=== PATIENT | male | born 1945 | race Caucasian/White ===

== ENCOUNTER 2023-02-28 19:50 | Inpatient (IN) ==
[2023-02-28 21:25] LABS: BASOPHILS # (AUTO) 0.1 X10^3/uL (0.0-0.1); BASOPHILS % (AUTO) 0.4 % (0.2-1.0); EOSINOPHILS % (AUTO) 0.1 % (0.9-2.9); HEMATOCRIT 28.4 % (42.0-54.0); HEMOGLOBIN 8.9 g/dL (13.5-18.0); LYMPHOCYTES % (AUTO) 13.6 % (21.0-51.0); MEAN CORPUSCULAR HEMOGLOBIN 25.8 pg (27.0-34.0); MEAN CORPUSCULAR HGB CONC 31.4 g/dL (33.0-35.0); MEAN CORPUSCULAR VOLUME 82.1 fL (80.0-100.0); MEAN PLATELET VOLUME 8.6 fL (7.4-11.0); MONOCYTES # (AUTO) 1.5 x10^3/uL (0.3-0.8); MONOCYTES % (AUTO) 10.4 % (0.0-13.0); NEUTROPHILS # (AUTO) 11.1 x10^3/uL (2.2-4.8); NEUTROPHILS % (AUTO) 75.5 % (42.0-75.0); PLATELET COUNT 171 X10^3/uL (150.0-450.0); RED BLOOD COUNT 3.46 X10^6/uL (4.7-6.0); RED CELL DISTRIBUTION WIDTH 15.7 % (11.6-16.5); WHITE BLOOD COUNT 14.7 X10^3/uL (3.6-10.0)
[2023-02-28 21:45] LABS: ALANINE AMINOTRANSFERASE < 6 Units/L (12-78); ALBUMIN 2.4 g/dL (3.4-5.0); ALKALINE PHOSPHATASE 71 Units/L (46-116); ASPARTATE AMINO TRANSFERASE 9 Units/L (15-37); BLOOD UREA NITROGEN 41 mg/dL (7-18); CALCIUM 7.7 mg/dL (8.5-10.1); CARBON DIOXIDE 29.5 mmol/L (21-32); CHLORIDE 97 mmol/L (98-107); COR NA(FOR HYPERGLY) 133 mmol/L (136-145); GLUCOSE 118 mg/dL (65-99); SODIUM 133 mmol/L (136-145); TOTAL PROTEIN 6.9 g/dL (6.4-8.2); eGFR NON BLACK RACES 16 (>60)
--- NOTE | 2023-02-28 21:56 | DR.DIZZY ---
HPI Time seen Time Seen by Provider: 02/28/23 21:07 PCP Primary Care Physician: Dr. Mihir Phoenix Complaint Chief Complaint:: Pt states he was seen in the ER here yesterday after feeling very weak and having right sided pain. Pt's states his symptoms have progressively became worse. At 1830, at home the pt's blood pressure was 95/52 and O2 level was 83%. Pt denies feeling short of breath, pt states he just feels very tired. They attempted to notify their PCP with no luck of being seen. Self Treatment fo Chief Complaint: Pt stated he took his high blood pressure medication at home at 1900 COVID-19 Coronavirus risk:travel/contact w/high risk person: No Has patient experienced Coronavirus symptoms: No Nurses Notes Reviewed Nurses Notes Review: Yes Source History Provided: Patient, Family Member and Significant Other Mode of Arrival Mode of Arrival: Wheelchair Timing Onset of Chief Complaint: 02/27/23 Came on: Gradually Duration Duration: Intermittent Location of Weakness Weakness Location: Generalized Context Stroke Symptoms: None Severity Severity: Abnormal activity level PMH PMH Past Medical History: Yes Past Medical History: Dyslipidemia, GERD and Hypertension Past Medical History Comment: Parkinson, Fluid retention, Kidney Disease, BPH, Neuropathy, Chronic neck & back pain Past Surgical History: Yes Surgical History: Angioplasty/Stents, Ortho Surgery and Other Past Surgical History Comment: back sx x4, L knee replacement, R knee replacement, pain pump insertion, L & R neck ablation, lower back ablation, heart cath/stent x3 Family History History of Family Medical Conditions: Yes Family Medical History: Hypertension Social History Does patient currently use any type of tobacco product: No Have you used tobacco products in the last 12 months: No Type of Tobacco Use: None Does any household member use tobacco: No Alcohol Use: None Do you use any recreational Drugs:: No Lives With: Spouse Lives Where: Home Travel Risk Coronavirus risk:travel/contact w/high risk person: No Has patient experienced Coronavirus symptoms: No Infectious screening Have you traveled outside the country in the last 6 months?: No Isolation: Standard ROS Review of Systems Respiratoy: See HPI and Short of Breath PE Vital Signs Vitals: Vital Signs Temperature 98.1 F Pulse Rate 68 Respiratory Rate 22 Blood Pressure 78/42 O2 Sat by Pulse Oximetry 92 General Limitations: No Limitations General Appearance: Alert and In No Apparent Distress Head Head Exam: Normal Inspection Eyes Eye exam: Normal Appearance ENT ENT Exam: Normal Exam Neck Neck Exam: Normal Inspection Chest Chest Inspection: Normal Inspection Respiratory Respiratory Exam: Right: Rhonchi Cardiovascular Cardiovascular Exam: Regular Rate Abdominal Exam Abdominal Exam: Normal Inspection Rectal Rectal Exam: Deferred Extremeties Extremities Exam: Edema Back Back Exam: Normal Inspection Neurologic Neurological Exam: Alert, Oriented X3, CN II-XII Intact, Normal Gait and Reflexes Normal Patient Oriented To: Person, Place and Time COURSE Treatment Treatment: X-rays, labs, IV antibiotics Reevaluation 1st: Improved ROR Labs Reviewed Laboratory Results Reviewed?: Yes 02/28/23 21:14 02/28/23 21:14 Laboratory: WBC 14.7 X10^3/uL (3.6-10.0) H 02/28/23 21:14 RBC 3.46 X10^6/uL (4.7-6.0) L 02/28/23 21:14 Hgb 8.9 g/dL (13.5-18.0) L 02/28/23 21:14 Hct 28.4 % (42.0-54.0) L 02/28/23 21:14 MCV 82.1 fL (80.0-100.0) 02/28/23 21:14 MCH 25.8 pg (27.0-34.0) L 02/28/23 21:14 MCHC 31.4 g/dL (33.0-35.0) L 02/28/23 21:14 RDW 15.7 % (11.6-16.5) 02/28/23 21:14 Plt Count 171 X10^3/uL (150.0-450.0) 02/28/23 21:14 MPV 8.6 fL (7.4-11.0) 02/28/23 21:14 Neut % (Auto) 75.5 % (42.0-75.0) H 02/28/23 21:14 Lymph % (Auto) 13.6 % (21.0-51.0) L 02/28/23 21:14 [place] % (Auto) 10.4 % (0.0-13.0) 02/28/23 21:14 Eos % (Auto) 0.1 % (0.9-2.9) L 02/28/23 21:14 Baso % (Auto) 0.4 % (0.2-1.0) 02/28/23 21:14 Neut # (Auto) 11.1 x10^3/uL (2.2-4.8) H 02/28/23 21:14 Lymph # (Auto) 2.0 X10^3/uL (1.3-2.9) 02/28/23 21:14 [place] # (Auto) 1.5 x10^3/uL (0.3-0.8) H 02/28/23 21:14 Eos # (Auto) 0.0 x10^3/uL (0.0-0.2) 02/28/23 21:14 Baso # (Auto) 0.1 X10^3/uL (0.0-0.1) 02/28/23 21:14 Absolute Nucleated RBC 0.0 /100WBC 02/28/23 21:14 Sodium 133 mmol/L (136-145) L 02/28/23 21:14 Corrected Sodium 133 mmol/L (136-145) L 02/28/23 21:14 Potassium 4.0 mmol/L (3.5-5.1) 02/28/23 21:14 Chloride 97 mmol/L (98-107) L 02/28/23 21:14 Carbon Dioxide 29.5 mmol/L (21-32) 02/28/23 21:14 BUN 41 mg/dL (7-18) H 02/28/23 21:14 Creatinine 4.00 mg/dL (0.70-1.30) H 02/28/23 21:14 Est GFR (MDRD) Af Amer 19 (>60) L 02/28/23 21:14 Est GFR (MDRD) Non-Af 16 (>60) L 02/28/23 21:14 Glucose 118 mg/dL (65-99) H 02/28/23 21:14 Calcium 7.7 mg/dL (8.5-10.1) L 02/28/23 21:14 Corrected Calcium 9.0 mg/dL (8.5-10.1) 02/28/23 21:14 Total Bilirubin 0.70 mg/dL (0.2-1.0) 02/28/23 21:14 AST 9 Units/L (15-37) L 02/28/23 21:14 ALT < 6 Units/L (12-78) L 02/28/23 21:14 Alkaline Phosphatase 71 Units/L (46-116) 02/28/23 21:14 B-Natriuretic Peptide 176 pg/mL (0-79) H 02/28/23 21:14 Total Protein 6.9 g/dL (6.4-8.2) 02/28/23 21:14 Albumin 2.4 g/dL (3.4-5.0) L 02/28/23 21:14 Globulin 4.5 g/dL (2.5-4.5) 02/28/23 21:14 Albumin/Globulin Ratio 0.5 Ratio (1.1-2.1) L 02/28/23 21:14 XRAY XRAY Interpreted by: Radiologist Opioid Opioid Risk Tool Age (Augustin box if 16-45): No History of Preadolescent Sexual Abuse: No Total: 0 Total Score Risk Category: Low Risk Copyright: Leroy MEZA predicting aberrant behaviors Discharge Plan Diagnosis Discharge Problem: Acute on chronic kidney failure, RLL pneumonia Discharge Plan Patient Disposition: 09 ADMITTED INPATIENT Condition: Stable Prescriptions: No Action carvedilol 25 mg tablet 25 mg PO BID Patient Comments: TAKE ONE (1) TABLET BY MOUTH WITH FOOD TWO (2) TIMES A DAY ropinirole 1 mg tablet 1 mg PO TID tizanidine 4 mg tablet 4 mg PO BID PRN Patient Comments: TAKE ONE (1) TABLET BY MOUTH TWO (2) TIMES A DAY NEEDED carbidopa-levodopa 50-200 mg tablet extended release 1 tab PO TID clopidogrel 75 mg tablet 75 mg PO DAILY potassium chloride 20 mEq tablet,ER particles/crystals 20 meq PO DAILY tamsulosin 0.4 mg capsule 0.4 mg PO DAILY furosemide 80 mg tablet 160 mg PO DAILY Patient Comments: TAKE ONE (1) TABLET BY MOUTH ONCE DAILY pantoprazole 40 mg tablet,delayed release (DR/EC) 40 mg PO DAILY simvastatin 20 mg tablet 20 mg PO HS Patient Comments: TAKE ONE (1) TABLET BY MOUTH EVERY NIGHT AT BEDTIME FOR CHOLESTEROL gabapentin 100 mg capsule 100 mg PO BID Patient Comments: TAKE ONE (1) CAPSULE BY MOUTH TWO (2) TIMES A DAY Eliquis 5 mg tablet 5 mg PO BID hydromorphone 2 mg tablet 2 mg PO Q6HR PRN (Reason: Pain) bumetanide 2 mg tablet 2 mg PO QDAY losartan 50 mg Tablet 50 mg PO DAILY glycopyrrolate 1 mg tablet 1 mg PO BID tramadol 50 mg tablet 50 mg PO Q4H PRN cefdinir 300 mg capsule 300 mg PO BID 10 Days Qty: 20 0RF Health Concerns: Post Hospitalization: new medications and changes needed to prevent readmission or further decline. Pt educated and given instructions on all concerns. Plan of Treatment: Continue with present treatment and follow up plan. Pt is to keep follow up appointment as instructed and take medications as ordered. Follow ups/Referrals Follow ups/Referrals: Mihir Phoenix [Primary Care Provider] - 3 days
[2023-02-28] MEDS ORDERED: LEVAQUIN PREMIX IV 750 MG 750 MG/150 ML BAG IV SCH (22:00)
--- NOTE | 2023-02-28 22:36 | EKG ---
Test Reason : SOB Blood Pressure : */* mmHG Vent. Rate : 54 BPM Atrial Rate : 54 BPM P-R Int : 158 ms QRS Dur : 86 ms QT Int : 426 ms P-R-T Axes : 15 29 29 degrees QTc Int : 403 ms Sinus bradycardia Otherwise normal ECG When compared with ECG of 02-SEP-2022 17:15, Sinus rhythm has replaced Atrial fibrillation Vent. rate has decreased BY 77 BPM T wave inversion no longer evident in Lateral leads Confirmed by Valdo Laguna MD ([id number]) on 03/01/2023 1:10:19 PM Referred By: Confirmed By: Valdo Laguna MD
[2023-02-28] MEDS ORDERED: LEVAQUIN PREMIX IV 500 MG 500 MG/100 ML BAG IV ONE (23:35)
[2023-02-28] MEDS ORDERED: NS 1,000 ML IV 1,000 ML ONE (23:37)
[2023-02-28] MEDS: NS 1,000 ML IV 1,000 ML IV SCH (23:40)
[2023-03-01] MEDS ORDERED: LEVAQUIN PREMIX IV 500 MG 500 MG/100 ML BAG IV SCH (01:00)
[2023-03-01] MEDS ORDERED: NS 1,000 ML IV 1,000 ML ONE (01:31)
--- NOTE | 2023-03-01 02:06 | RAD ---
HISTORYSeen in the ER here yesterday after feeling very weak and having rt sided pain. Symptoms have progressively became worse. At home the pt's blood pressure was 95/52 and O2 level was 83%. Relevant Clinical InformationSTUDJAMES REESE/LAT [id number]/24/2023 isFINDINGSThe trachea is midline. The cardiac silhouette is unremarkable. Increased opacification in the right lung base due to subsegmental atelectasis and/or infiltrate with small pleural effusion, unchanged. The left lung is clear. The bony thorax is unremarkable.IMPRESSIONRight basilar infiltrate, atelectasis and/or small effusion..Electronically signed by: Chandan Martinez (Mar 01, 2023 02:04:54)
[2023-03-01] MEDS: NORCO 5/325 MG TAB PO PRN ×3 (02:52→15:20)
[2023-03-01 04:28] LABS: BASOPHILS % (AUTO) 0.3 % (0.2-1.0); EOSINOPHILS % (AUTO) 0.2 % (0.9-2.9); HEMATOCRIT 26.1 % (42.0-54.0); HEMOGLOBIN 8.1 g/dL (13.5-18.0); LYMPHOCYTES # (AUTO) 1.5 X10^3/uL (1.3-2.9); MEAN CORPUSCULAR HEMOGLOBIN 25.6 pg (27.0-34.0); MEAN CORPUSCULAR HGB CONC 31.1 g/dL (33.0-35.0); MEAN CORPUSCULAR VOLUME 82.1 fL (80.0-100.0); MONOCYTES # (AUTO) 1.1 x10^3/uL (0.3-0.8); MONOCYTES % (AUTO) 9.3 % (0.0-13.0); NEUTROPHILS # (AUTO) 9.6 x10^3/uL (2.2-4.8); NEUTROPHILS % (AUTO) 78.2 % (42.0-75.0); PLATELET COUNT 153 X10^3/uL (150.0-450.0); RED BLOOD COUNT 3.18 X10^6/uL (4.7-6.0); RED CELL DISTRIBUTION WIDTH 16.1 % (11.6-16.5); WHITE BLOOD COUNT 12.3 X10^3/uL (3.6-10.0)
[2023-03-01 04:43] LABS: ALKALINE PHOSPHATASE 67 Units/L (46-116); ASPARTATE AMINO TRANSFERASE 10 Units/L (15-37); BLOOD UREA NITROGEN 43 mg/dL (7-18); CALCIUM 7.4 mg/dL (8.5-10.1); CARBON DIOXIDE 28.1 mmol/L (21-32); CHLORIDE 97 mmol/L (98-107); COR NA(FOR HYPERGLY) 134 mmol/L (136-145); CREATININE 3.96 mg/dL (0.70-1.30); GLUCOSE 126 mg/dL (65-99); POTASSIUM 4.1 mmol/L (3.5-5.1); SODIUM 133 mmol/L (136-145); TOTAL PROTEIN 6.2 g/dL (6.4-8.2); eGFR NON BLACK RACES 16 (>60)
[2023-03-01 04:45] LABS: ALANINE AMINOTRANSFERASE < 6 Units/L (12-78)
[2023-03-01] MEDS: DUONEB 0.5 MG/3 MG (3 mL) NEB SCH ×4 (09:14→21:03)
[2023-03-01] MEDS: PULMICORT NEB TX 0.5 MG NEB SCH ×2 (09:14→21:03)
[2023-03-01] MEDS: PROTONIX INJ 40 MG VIAL IVP SCH ×2 (09:27→20:44)
[2023-03-01] MEDS: COLACE CAP 100 MG PO SCH ×2 (10:15→21:27)
[2023-03-01] MEDS: NS 1,000 ML IV 1,000 ML IV SCH ×2 (10:15→18:25)
[2023-03-01] MEDS: MILK OF MAGNESIA PO SCH ×2 (10:15→21:28)
[2023-03-01 19:30] VITALS: BMI 37.2
[2023-03-01] MEDS: DILAUDID INJ IVP PRN ×2 (19:59→23:41)
[2023-03-01] MEDS ORDERED: RESTORIL CAP 15 MG PO SCH (21:00)
--- NOTE | 2023-03-01 21:21 | DR.H&P ---
H&P History & Physical for Day of: H&P Date: 03/01/23 Chief Complaint Chief Complaint: Weakness with right-sided chest pain and right-sided back pain Allergies Allergies Allergy/AdvReac Type Severity Reaction Status Date / Time No Known Drug Allergies Allergy Verified 10/09/22 18:52 History of Present Illness History of Present Illness: This is a 77-year-old white male who presented to the emergency department on Sunday, 27 February 2023 with increasing weakness and right-sided chest pain and right-sided back pain. He was seen in the emergency department about a month ago and diagnosed with right lower lobe pneumonia. His primary care physician is Dr. Palacio in [place], [place]. His primary care physician started him on doxycycline on the day before but the patient got worse so decided to come to the [facility] emergency department. X-ray shows that he has a right-sided basilar infiltrate along with a right- sided pleural effusion. This was also seen 1 day prior when he came [facility] and emergency department for similar symptoms. Because of his ongoing problems with increasing weakness and worsening hemoglobin along with the right basilar pneumonia we decided to go ahead and admit Him for inpatient treatment of pneumonia. He also has a worsening hemoglobin over the last 3 days so we will consult general surgery, Dr. Mireles to do EGD on him. His hemoglobin today is 8.1 which is down from 10.12 days ago. He has chronic back pain which he takes oral Dilaudid for and he tells me this morning that he is unable to sleep at night because of the bed hurting his back. I spoke with general surgeon, Dr. Mireles this afternoon when he plans on doing EGD tomorrow morning to rule out the possibility of an upper GI bleed causing his anemia. Patient was also found to be profoundly dehydrated and we are rehydrating him with slow IV fluid. He is slightly improved today since yesterday regarding his creatinine level. Past Medical History Past Medical History: Anemia, CHF, Dyslipidemia, GERD and Hypertension Additional Medical History: Restless leg syndrome, chronic back pain, hypercholesteremia, BPH, hypertension Past Surgical History Surgical History: Angioplasty/Stents and Joint Replacement Additional Surgical History: Left knee arthroplasty, right knee arthroplasty Family History Family Medical History: Diabetes Mellitus, Cancer, MD and Hypertension Social History Does patient currently use any type of tobacco product: No Have you used tobacco products in the last 12 months: No Type of Tobacco Use: None How many years tobacco product used: 12 Does any household member use tobacco: No Alcohol Use: None Drug Use: None Medications Home Medications: Home Medications Medication Instructions Recorded Confirmed Type apixaban 5 mg tablet (Eliquis) 5 mg PO BID 08/25/21 02/28/23 History carbidopa ER 50 mg-levodopa 200 mg 1 tab PO TID 08/25/21 02/28/23 History tablet,extended release carvedilol 25 mg tablet 25 mg PO BID 08/25/21 02/28/23 History clopidogrel 75 mg tablet 75 mg PO DAILY 08/25/21 02/28/23 History furosemide 80 mg tablet 160 mg PO DAILY 08/25/21 02/28/23 History gabapentin 100 mg capsule 100 mg PO BID 08/25/21 02/28/23 History pantoprazole 40 mg tablet,delayed 40 mg PO DAILY 08/25/21 02/28/23 History release potassium chloride 20 mEq 20 meq PO DAILY 08/25/21 02/28/23 History tablet,extended release(part/cryst) ropinirole 1 mg tablet 1 mg PO TID 08/25/21 02/28/23 History simvastatin 20 mg tablet 20 mg PO HS 08/25/21 02/28/23 History tamsulosin 0.4 mg capsule 0.4 mg PO DAILY 08/25/21 02/28/23 History tizanidine 4 mg tablet 4 mg PO BID PRN 08/25/21 02/28/23 History hydromorphone 2 mg tablet 2 mg PO Q6HR PRN Pain 10/05/22 02/28/23 History bumetanide 2 mg tablet 2 mg PO QDAY 01/24/23 02/28/23 History glycopyrrolate 1 mg tablet 1 mg PO BID 02/27/23 02/28/23 History losartan 50 mg tablet 50 mg PO DAILY 02/27/23 02/28/23 History tramadol 50 mg tablet 50 mg PO Q4H PRN 02/27/23 02/28/23 History Labs 03/01/23 04:06 03/01/23 04:06 Labs: Laboratory WBC 12.3 X10^3/uL (3.6-10.0) H 03/01/23 04:06 RBC 3.18 X10^6/uL (4.7-6.0) L 03/01/23 04:06 Hgb 8.1 g/dL (13.5-18.0) L 03/01/23 04:06 Hct 26.1 % (42.0-54.0) L 03/01/23 04:06 MCV 82.1 fL (80.0-100.0) 03/01/23 04:06 MCH 25.6 pg (27.0-34.0) L 03/01/23 04:06 MCHC 31.1 g/dL (33.0-35.0) L 03/01/23 04:06 RDW 16.1 % (11.6-16.5) 03/01/23 04:06 Plt Count 153 X10^3/uL (150.0-450.0) 03/01/23 04:06 MPV 9.0 fL (7.4-11.0) 03/01/23 04:06 Neut % (Auto) 78.2 % (42.0-75.0) H 03/01/23 04:06 Lymph % (Auto) 12.0 % (21.0-51.0) L 03/01/23 04:06 [place] % (Auto) 9.3 % (0.0-13.0) 03/01/23 04:06 Eos % (Auto) 0.2 % (0.9-2.9) L 03/01/23 04:06 Baso % (Auto) 0.3 % (0.2-1.0) 03/01/23 04:06 Neut # (Auto) 9.6 x10^3/uL (2.2-4.8) H 03/01/23 04:06 Lymph # (Auto) 1.5 X10^3/uL (1.3-2.9) 03/01/23 04:06 [place] # (Auto) 1.1 x10^3/uL (0.3-0.8) H 03/01/23 04:06 Eos # (Auto) 0.0 x10^3/uL (0.0-0.2) 03/01/23 04:06 Baso # (Auto) 0.0 X10^3/uL (0.0-0.1) 03/01/23 04:06 Absolute Nucleated RBC 0.0 /100WBC 03/01/23 04:06 Sodium 133 mmol/L (136-145) L 03/01/23 04:06 Corrected Sodium 134 mmol/L (136-145) L 03/01/23 04:06 Potassium 4.1 mmol/L (3.5-5.1) 03/01/23 04:06 Chloride 97 mmol/L (98-107) L 03/01/23 04:06 Carbon Dioxide 28.1 mmol/L (21-32) 03/01/23 04:06 BUN 43 mg/dL (7-18) H 03/01/23 04:06 Creatinine 3.96 mg/dL (0.70-1.30) H 03/01/23 04:06 Est GFR (MDRD) Af Amer 19 (>60) L 03/01/23 04:06 Est GFR (MDRD) Non-Af 16 (>60) L 03/01/23 04:06 Glucose 126 mg/dL (65-99) H 03/01/23 04:06 Calcium 7.4 mg/dL (8.5-10.1) L 03/01/23 04:06 Corrected Calcium 9.0 mg/dL (8.5-10.1) 03/01/23 04:06 Total Bilirubin 0.60 mg/dL (0.2-1.0) 03/01/23 04:06 AST 10 Units/L (15-37) L 03/01/23 04:06 ALT < 6 Units/L (12-78) L 03/01/23 04:06 Alkaline Phosphatase 67 Units/L (46-116) 03/01/23 04:06 B-Natriuretic Peptide 176 pg/mL (0-79) H 02/28/23 21:14 Total Protein 6.2 g/dL (6.4-8.2) L 03/01/23 04:06 Albumin 2.0 g/dL (3.4-5.0) L 03/01/23 04:06 Globulin 4.2 g/dL (2.5-4.5) 03/01/23 04:06 Albumin/Globulin Ratio 0.5 Ratio (1.1-2.1) L 03/01/23 04:06 Review of Systems Constitutional: Weakness Eyes: No Symptoms Reported ENT: No Symptoms Reported Respiratory: Cough, Shortness of Breath and SOB with Excertion Cardiovascular: Chest Pain and Orthopnea Gastrointestinal: No Symptoms Reported Genitourinary: Frequency Musculoskeletal: Back Pain Skin: No Symptoms Reported Neurological: Weakness and Incoordination; denies Change in Speech Physical Exam Vital Signs: Vital Signs Pulse Rate [Right Brachial] 69 Pulse Rate 67 Respiratory Rate 15 Respiratory Rate 22 Respiratory Rate 24 Respiratory Rate 22 Blood Pressure [Right Arm] 114/79 O2 Sat by Pulse Oximetry 94 O2 Sat by Pulse Oximetry 96 Oriented: Normal Eyes: Normal Ear: Normal Nose: Normal Throat: Normal Respiratory: Clear Throughout Cardiovascular: Normal : Normal Auscultation: Bowel Sounds: Normal Palpation: Normal Tenderness: Normal Skin: Decreased Turgur Musculoskeletal: Back:Thoracic and Back:Lumbar Psychiatric: Normal Mood Description: Calm Affect: Anxious and Normal Speech Pattern: Clear and Appropriate Assessment/Plan (1) Cough with hemoptysis: Status: Acute Plan: Symptoms likely secondary to right lower lobe pneumonia. Continue IV Levaquin (2) Anemia, deficiency: Status: Acute Plan: General surgery was consulted for EGD tomorrow morning to rule out (3) Chronic back pain: Qualifiers: Back pain laterality: bilateral Back pain location: low back pain Sciatica presence: without sciatica Qualified Code(s): M54.50 - Low back pain, unspecified; G89.29 - Other chronic pain Status: Acute Plan: Pain control with IV Dilaudid. (4) CRF (chronic renal failure): Status: Acute Plan: Slow IV hydration. (5) Degenerative disc disease, cervical: Status: Acute Plan: Pain control. (6) Chest pain: Status: Acute Plan: Check serial cardiac enzymes and EKGs. (7) Arthritis: Status: Acute (8) RLL pneumonia: Status: Acute Plan: IV Levaquin as checked sputum culture and sensitivity. (9) Acute on chronic kidney failure: Status: Acute Plan: IV hydration. Review H&P Reviewed: Yes Patient was examined?: Yes
[2023-03-01] MEDS ORDERED: FORTAZ or TAZICEF VIAL INJ 1 G in NS 100 ML IV 100 ML IV SCH (21:25)
[2023-03-01] MEDS ORDERED: FORTAZ or TAZICEF VIAL INJ 2 G in NS 100 ML IV 100 ML IV SCH (22:00)
[2023-03-01] MEDS ORDERED: ZOCOR TAB 20 MG PO SCH (22:00)
[2023-03-01] MEDS: NEURONTIN CAP 100 MG PO SCH (22:05)
[2023-03-01] MEDS: REQUIP PO SCH (22:06)
[2023-03-01] MEDS: SINEMET CR 50/200 MG PO SCH (22:06)
[2023-03-01] MEDS: COREG TAB 25 MG PO SCH (22:07)
[2023-03-01] MEDS: ROBINUL PO SCH (23:25)
[2023-03-02] MEDS: NS 1,000 ML IV 1,000 ML IV SCH ×3 (03:00→09:53)
[2023-03-02 04:25] VITALS: TEMP 97.8
--- NOTE | 2023-03-02 04:40 | EKG ---
Test Reason : new tachycardia Blood Pressure : */* mmHG Vent. Rate : 127 BPM Atrial Rate : * BPM P-R Int : * ms QRS Dur : 88 ms QT Int : 310 ms P-R-T Axes : * 51 -72 degrees QTc Int : 450 ms Atrial fibrillation with rapid ventricular response with premature ventricular or aberrantly conducte d complexes Nonspecific ST and T wave abnormality Abnormal ECG When compared with ECG of 28-FEB-2023 22:31, Atrial fibrillation has replaced Sinus rhythm Vent. rate has increased BY [address] now depressed in Anterolateral leads Nonspecific T wave abnormality, worse in Inferior leads T wave inversion now evident in Lateral leads Confirmed by Valdo Laguna MD ([id number]) on 03/02/2023 9:43:32 AM Referred By: Confirmed By: Valdo Laguna MD
[2023-03-02 05:28] LABS: BASOPHILS # (AUTO) 0.2 X10^3/uL (0.0-0.1); BASOPHILS % (AUTO) 2.6 % (0.2-1.0); EOSINOPHILS # (AUTO) 0.1 x10^3/uL (0.0-0.2); EOSINOPHILS % (AUTO) 0.7 % (0.9-2.9); HEMATOCRIT 27.5 % (42.0-54.0); HEMOGLOBIN 8.7 g/dL (13.5-18.0); LYMPHOCYTES # (AUTO) 1.4 X10^3/uL (1.3-2.9); MEAN CORPUSCULAR HEMOGLOBIN 25.8 pg (27.0-34.0); MEAN CORPUSCULAR HGB CONC 31.6 g/dL (33.0-35.0); MEAN CORPUSCULAR VOLUME 81.6 fL (80.0-100.0); MEAN PLATELET VOLUME 9.4 fL (7.4-11.0); MONOCYTES % (AUTO) 10.4 % (0.0-13.0); NEUTROPHILS # (AUTO) 6.7 x10^3/uL (2.2-4.8); NEUTROPHILS % (AUTO) 71.3 % (42.0-75.0); PLATELET COUNT 153 X10^3/uL (150.0-450.0); RED BLOOD COUNT 3.37 X10^6/uL (4.7-6.0); RED CELL DISTRIBUTION WIDTH 16.1 % (11.6-16.5); WHITE BLOOD COUNT 9.4 X10^3/uL (3.6-10.0)
[2023-03-02 05:44] LABS: ALKALINE PHOSPHATASE 75 Units/L (46-116); ASPARTATE AMINO TRANSFERASE 10 Units/L (15-37); BLOOD UREA NITROGEN 48 mg/dL (7-18); CALCIUM 8.1 mg/dL (8.5-10.1); CARBON DIOXIDE 26.4 mmol/L (21-32); CHLORIDE 99 mmol/L (98-107); COR CA(FOR HYPOALB) 9.7 mg/dL (8.5-10.1); CREATININE 4.07 mg/dL (0.70-1.30); GLUCOSE 83 mg/dL (65-99); MAGNESIUM 1.8 mg/dL (2.0-2.9); POTASSIUM 4.1 mmol/L (3.5-5.1); SODIUM 134 mmol/L (136-145); TOTAL PROTEIN 6.3 g/dL (6.4-8.2); eGFR NON BLACK RACES 15 (>60)
[2023-03-02 05:59] LABS: ALANINE AMINOTRANSFERASE < 6 Units/L (12-78)
--- NOTE | 2023-03-02 05:59 | RAD ---
HISTORYRight lower lobe pneumonia Relevant Clinical InformationSTUDYCHEST, 1 [id number]/25/2023FINDINGSThe trachea is midline. The cardiac silhouette is unremarkable. Persistent increased opacification within the right lung base due to subsegmental atelectasis and/or infiltrate with small pleural effusion. Left lung is clear. The bony thorax is unremarkable.IMPRESSIONStable portable chest.Electronically signed by: Chandan Martinez (Mar 02, 2023 05:59:08)
--- NOTE | 2023-03-02 06:03 | RAD ---
HISTORYPNEUMONIA Relevant Clinical InformationSTUDYCHEST, 1 [id number]/26/2023FINDINGSThe trachea is midline. The cardiac silhouette is unremarkable. Persistent increased opacification within the right lung base due to subsegmental atelectasis and/or infiltrate with small pleural effusion. The bony thorax is unremarkable.IMPRESSIONStable portable chest.Electronically signed by: Chandan Martinez (Mar 02, 2023 06:02:03)
[2023-03-02] MEDS: REQUIP PO SCH (06:20)
[2023-03-02] MEDS: SINEMET CR 50/200 MG PO SCH (06:21)
[2023-03-02] MEDS: PULMICORT NEB TX 0.5 MG NEB SCH (08:24)
[2023-03-02] MEDS: DUONEB 0.5 MG/3 MG (3 mL) NEB SCH (08:24)
[2023-03-02] MEDS ORDERED: ISOPTO ATROPINE SL PRN (08:45)
[2023-03-02 09:17] LABS: BILIRUBIN,URINE NEGATIVE (NEGATIVE); BLOOD/HEMOGLOBIN,URINE NEGATIVE (NEGATIVE); GLUCOSE, URINE NEGATIVE (NEGATIVE); KETONES,URINE NEGATIVE (NEGATIVE); LEUKOCYTE ESTERASE ,URINE NEGATIVE (NEGATIVE); NITRITES,URINE NEGATIVE (NEGATIVE); PROTEIN,URINE 1+ (NEGATIVE); UROBILINOGEN,URINE NORMAL (NORMAL)
[2023-03-02 09:18] LABS: APPEARANCE,URINE CLEAR (CLEAR); COLOR,URINE YELLOW (YELLOW)
[2023-03-02 09:28] LABS: RBC,URINE NONE SEEN /HPF (0-3)
[2023-03-02 09:29] LABS: BACTERIA,URINE 1+ /HPF (NEGATIVE); GRANULAR CASTS,URINE RARE /LPF (NEGATIVE); RENAL EPITHELIAL CELLS,URINE RARE /HPF (NEGATIVE); SQUAMOUS EPITHELIAL CELL,UR NEGATIVE /HPF (NEGATIVE)
[2023-03-02] MEDS: FLOMAX PO SCH ×2 (09:39→09:55)
[2023-03-02] MEDS: K-DUR TAB 20 MEQ PO SCH ×2 (09:39→09:57)
[2023-03-02] MEDS: COREG TAB 25 MG PO SCH ×2 (09:39→09:55)
[2023-03-02] MEDS: NEURONTIN CAP 100 MG PO SCH ×2 (09:39→09:56)
[2023-03-02] MEDS: ROBINUL PO SCH ×2 (09:40→09:56)
[2023-03-02] MEDS: PROTONIX INJ 40 MG VIAL IVP SCH (09:40)
[2023-03-02] MEDS: MILK OF MAGNESIA PO SCH (09:54)
[2023-03-02] MEDS: COLACE CAP 100 MG PO SCH (09:54)
[2023-03-02 10:24] LABS: ABG ALLEN TEST POS; ABG BASE EXCESS -1.8 mmol/L (-2.0-2.0); ABG HCO3 24.7 mmol/L (22-26)
[2023-03-02] MEDS ORDERED: DOPAMINE IV PREMIX 400 MG/250 ML 400 MG/250 ML BAG IV PRN (12:18)
[2023-03-02] MEDS ORDERED: DOPAMINE IV PREMIX 400 MG/250 ML 400 MG/250 ML BAG IV ONE (12:20)
[2023-03-02] MEDS ORDERED: NEXTERONE IV 150 MG PREMIX* 150 MG/100 ML BAG IV ONE (13:00)
[2023-03-02] MEDS ORDERED: NEXTERONE IV 360 MG PREMIX* 360 MG/200 ML BAG IV PRN (13:10)
[2023-03-02 13:38] VITALS: BP 102/54; PULSE 123; RESP 21; O2SAT 93
[2023-03-03] MEDS ORDERED: LEVAQUIN PREMIX IV 500 MG 500 MG/100 ML BAG IV SCH (09:00)
== END 2023-03-02 13:35 | disposition short-term general hospital (02) | DRG 194 ==
LOC: ER 19:50 → ICU 22:27
PROVIDERS: ADMIT Family Medicine; ATTEND Family Medicine
DX: R53.1 Weakness; R07.89 Other chest pain; J18.8 Other pneumonia, unspecified organism; N18.9 Chronic kidney disease, unspecified; G25.81 Restless legs syndrome; B96.89 Other specified bacterial agents as the cause of diseases classified elsewhere; M19.90 Unspecified osteoarthritis, unspecified site; E78.2 Mixed hyperlipidemia; B96.29 Other Escherichia coli [E. coli] as the cause of diseases classified elsewhere; M54.50 Low back pain, unspecified; I12.9 Hypertensive chronic kidney disease with stage 1 through stage 4 chronic kidney disease, or unspecified chronic kidney disease; B96.1 Klebsiella pneumoniae [K. pneumoniae] as the cause of diseases classified elsewhere; K21.9 Gastro-esophageal reflux disease without esophagitis; I48.91 Unspecified atrial fibrillation; G20.C Parkinsonism, unspecified; N17.8 Other acute kidney failure; R04.2 Hemoptysis; M50.30 Other cervical disc degeneration, unspecified cervical region; E83.42 Hypomagnesemia